=== PATIENT | male | born 1990 | race Caucasian/White ===

== ENCOUNTER 2021-04-02 17:18 | Emergency (ER) | payer OTHER ==
[~2021-04-02] VITALS: Ht 182.9 cm; Wt 96.8 kg
[2021-04-02 17:41] VITALS: BP 144/73
--- NOTE | 2021-04-02 17:55 | PHYS DOC ---
Past History Past Surgical History: No Surgical History (PADMINI SNYDER APRN) Alcohol Use: None (PADMINI SNYDER APRN) General Adult EDM: Chief Complaint: BACK PAIN OR INJURY HPI: HPI: Patient is a 30-year-old male who presents to the emergency department for left- sided thoracic pain that started this morning after working out at the gym. Patient is unsure of how he injured at the gym but noticed the pain after he worked out. He rates his pain 3 out of 10. He states he has been taking Tylenol without any improvement. Event occurred today. Patient denies any loss of bowel or bladder, numbness or tingling down his legs, saddle anesthesias, and shortness of breath. (PADMINI SNYDER APRN) Review of Systems: Review of Systems: 14 body systems of the review of systems have been reviewed. See HPI for perti nent positive and negative responses, otherwise all other systems are negative, nonpertinent or noncontributory (PADMINI SNYDER APRN) Allergies: Allergies: Allergies Coded Allergies Type Severity Reaction Last Updated Verified No Known Drug Allergies 04/02/21 No (PADMINI SNYDER APRN) Physical Exam: PE: Constitutional: Well developed, well nourished, no acute distress, non-toxic appearance. [] HENT: Normocephalic, atraumatic, bilateral external ears normal, oropharynx moist, no oral exudates, nose normal. [] Eyes: PERRL, EOMI, conjunctiva normal, no discharge. [] Neck: Normal range of motion, no bony spinal tenderness, supple, no stridor, no step-offs or deformities. [] Cardiovascular:Heart rate regular rhythm, no murmur [] Lungs & Thorax: Bilateral breath sounds clear to auscultation [] Abdomen: soft, no tenderness, no masses, no pulsatile masses. [] Skin: Warm, dry, no erythema, no rash. [] Back: No bony spinal tenderness, no CVA tenderness, normal range of motion, left-sided paraspinal thoracic pain with palpation, no step-offs or deformities Extremities: No tenderness, no cyanosis, no clubbing, ROM intact, no edema. [] Neurologic: Alert and oriented X 3, normal motor function, normal sensory function, no focal deficits noted. [] Psychologic: Affect normal, judgement normal, mood normal. [] (PADMINI SNYDER APRN) Current Patient Data: Vital Signs: Vital Signs Date Time Temp Pulse Resp B/P (MAP) Pulse Ox O2 Delivery O2 Flow Rate FiO2 04/02/21 17:41 97.9 79 16 144/73 (96) 100 Room Air (PADMINI SNYDER APRN) EKG: EKG: [] (PADMINI SNYDER APRN) Radiology/Procedures: Radiology/Procedures: []REASON: l. sided tenderness after working out PROCEDURE: CT THORACIC SPINE WO CONTRAST CT THORACIC SPINE WO dated 04/02/2021 5:50 PM Indication:Reason: l. sided tenderness after working out / Spl. Instructions: / History: Comparison: No comparison is available. Technique: Helical noncontrast images were performed. Sagittal and coronal reconstructions were obtained. One or more of the following individualized dose reduction techniques were utilized for this examination: 1. Automated exposure control 2. Adjustment of the mA and/or kV according to patient size 3. Use of iterative reconstruction technique Findings: Alignment is normal. There is no loss of vertebral body height or other evidence for fracture. No destructive process is seen. Evaluation of the soft tissue components of the canal is limited without intrathecal contrast. IMPRESSION: Negative study. Electronically signed by: Daphnie South Jr., MD (04/02/2021 6:17 PM) [facility] DICTATED AND SIGNED BY: DAPHNIE SOUTH Jr, MD DATE: 04/02/211813 CC: PADMINI SNYDER APRN; PCP,NO ~MTH0 0 (PADMINI SNYDER APRN) Heart Score: C/O Chest Pain: N/A Risk Factors: Risk Factors: DM, Current or recent (<one month) smoker, HTN, HLP, family history of CAD, obesity. Risk Scores: Score 0 - 3: 2.5% MACE over next 6 weeks - Discharge Home Score 4 - 6: 20.3% MACE over next 6 weeks - Admit for Clinical Observation Score 7 - 10: 72.7% MACE over next 6 weeks - Early Invasive Strategies (PADMINI SNYDER APRN) Course & Med Decision Making: Course & Med Decision Making Pertinent Labs and Imaging studies reviewed. (See chart for details) [] Patient presents to the emergency department for left-sided paraspinal thoracic pain after working at the gym. Spine was imaged and it was negative for any acute findings. Patient treated with anti-inflammatory medication and a muscle relaxer. Patient advised to apply ice for the 1st 24 hours followed by heat. He was advised to take Tylenol/ibuprofen for pain. He was also advised to take muscle relaxer that was prescribed for him. He was given education regarding sedation associated with muscle relaxers. Patient advised to follow- up with his primary care provider. I discussed with patient all findings and diagnostic testing as well as the need to follow-up with PCP for further evaluation and treatment or return to the ER if any new or worsening symptoms. Strict return precautions were also discussed at length. Patient voiced understanding and agreement with the plan. Patient is hemodynamically stable at the time of disposition. (PADMINI SNYDER APRN) Dragon Disclaimer: Draglars Disclaimer: This electronic medical record was generated, in whole or in part, using a voice recognition dictation system. (PADMINI SNYDER APRN) Attending Co-Sign The patient was seen and interviewed as well as examined at the bedside. The chart was reviewed. The case was discussed. Agree with the plan of care. (DANETTE HERNANDEZ DO) Departure Departure: Impression: Primary Impression: Back pain Qualified Codes: M54.6 - Pain in thoracic spine Disposition: HOME / SELF CARE / HOMELESS Condition: GOOD Referrals: PCP,NO (PCP) Patient Instructions: Muscle Strain Additional Instructions: You were seen in the emergency department for back pain. Imaging was performed was negative for any acute findings. You were given an anti-inflammatory and muscle relaxer shot in the ER. You can continue to take ibuprofen or naproxen at home. You are being discharged with a muscle relaxer. Please take this as directed. This medication may cause sedation, do not take need to be alert do not take with alcohol. Follow-up with your primary care provider tomorrow regarding your ER visit. Please return to the emergency department if you have worsening of your pain, loss of bowel or bladder, numbness or tingling in your groin or down your extremities, shortness of breath or chest pain. EMERGENCY DEPARTMENT GENERAL DISCHARGE INSTRUCTIONS Thank you for coming to [facility] (ED) today and trusting us with you care. We trust that you had a positivie experience in our Emergency Department. If you wish to speak to the department management, you may call the director at [phone]. YOUR FOLLOW UP INSTRUCTIONS ARE FOLLOWS: 1. Do you have a private Doctor? If you do not have a private doctor, please ask for a resource list of physicians or clinics that may be able to assist you with follow up care. 2. The Emergency Physician has interpreted your x-rays. The X-Ray specialist will also review them. If there is a change in the findings, you will be notified in 48 hours when at all possible. 3. A lab test or culture has been done, your results will be reviewed and you will be notified if you need a change in treatment. ADDITIONAL INSTRUCTIONS AND INFORMATION: 1. Your care today has been supervised by a physician who is specially trained in emergency care. Many problems require more than one evaluation for a complete diagnosis and treatment. We recommend that you schedule your follow up appointment as recommended to ensure complete treatment of you illness or injury. If you are unable to obtain follow up care and continue to have a problem, or if your condition worsens, we recommend that you return to the ED. 2. We are not able to safely determine your condition over the phone nor are we able to give sound medical advice over the phone. For these safety reasons, if you call for medical advice we will ask you to come to the ED for further evaluation. 3. If you have any questions regarding these discharge instructions please call the ED at [phone]. SAFETY INFORMATION: In the interest of safety, wellness, and injury prevention; we encourage you to wear your sealbelt, if you smoke; quite smoking, and we encourage family to use a protective helmet for bicycling and other sporting events that present an increased risk for head injury. IF YOUR SYMPTOMS WORSEN OR NEW SYMPTOMS DEVELOP, OR YOU HAVE CONCERNS ABOUT YOUR CONDITION; OR IF YOUR CONDITION WORSENS WHILE YOU ARE WAITING FOR YOUR FOLLOW UP APPOINTMENT; EITHER CONTACT YOUR PRIMARY CARE DOCTOR, THE PHYSICIAN WHOSE NAME AND NUMBER YOU WERE GIVEN, OR RETURN TO THE ED IMMEDIATELY. Scripts Cyclobenzaprine Hcl (CYCLOBENZAPRINE HCL) 5 Mg Tablet 1 TAB PO TID for muscle spasm for 7 Days, #21 TAB 0 Refills Prov: PADMINI SNYDER APRN 04/02/21 PADMINI SNYDER APRN Apr 02, 2021 17:55 DANETTE HERNANDEZ DO Apr 03, 2021 05:48
--- NOTE | 2021-04-02 18:19 | RAD ---
CT THORACIC SPINE WO dated 04/02/2021 5:50 PM Indication:Reason: l. sided tenderness after working out / Spl. Instructions: / History: Comparison: No comparison is available. Technique: Helical noncontrast images were performed. Sagittal and coronal reconstructions were obtai andry. One or more of the following individualized dose reduction techniques were utilized for this examinat ion: 1. Automated exposure control 2. Adjustment of the mA and/or kV according to patient size 3. Use of iterative reconstruction technique Findings: Alignment is normal. There is no loss of vertebral body height or other evidence for fracture. No everardo tructive process is seen. Evaluation of the soft tissue components of the canal is limited without in trathecal contrast. IMPRESSION: Negative study. Electronically signed by: Jesus Alberto Ritchie Jr., MD (04/02/2021 6:17 PM) [facility]
[2021-04-02] MEDS ORDERED: CYCL5TAB PO (18:25)
[2021-04-02] MEDS ORDERED: KETOROLAC 60 MG/2 ML VIAL. IM ONE (18:30)
[2021-04-02] MEDS ORDERED: ORPHENADRINE CITRATE 60 MG/2 ML VIAL. IM ONE (18:30)
== END 2021-04-02 18:34 | disposition home or self-care (01) ==
LOC: ER 17:18
DX: M54.6 Pain in thoracic spine (principal)
CPT/HCPCS: 72128; 96372; 99284; J1885; J2360